=== PATIENT | female | born 1985 | race Caucasian/White ===

== ENCOUNTER 2018-09-01 17:29 | Observation (INO) | payer BC, MEDICAID | END 2018-09-01 19:55 | disposition home or self-care (01) | LOC: SPU 17:29 | PROVIDERS: ADMIT Specialist; ATTEND Specialist | DX: O62.9 Abnormality of forces of labor, unspecified (principal); Z3A.39 39 weeks gestation of pregnancy | CPT/HCPCS: G0378 ==

== ENCOUNTER 2018-09-03 07:50 | Inpatient (IN) | payer BC, MEDICAID ==
[~2018-09-03] VITALS: Ht 172.7 cm; Wt 107.0 kg
[2018-09-03] MEDS ORDERED: OXYTOCIN/0.9 % SODIUM CHLORIDE 1,000 ML IV SCH (08:29)
[2018-09-03] MEDS ORDERED: LR 1,000 ML IV SCH (08:29)
[2018-09-03] MEDS ORDERED: TERBUTALINE SULFATE 1 MG/ML VIAL SUBCUT ONE (08:30)
[2018-09-03] MEDS ORDERED: NALBUPHINE HCL 10 MG/ML AMP IVP PRN (08:30)
[2018-09-03 09:20] LABS: HEMATOCRIT 35.1 % (36-48); HEMOGLOBIN 11.6 g/dL (12.0-16.0); RED BLOOD CELL COUNT(AUTO) 4.21 MIL/uL (4.2-6.2)
[2018-09-03 09:21] LABS: BASOPHILS % (AUTO) 0.3 % (0.0-2.0); EOSINOPHILS % (AUTO) 0.6 % (0.0-4.0); LYMPHOCYTES # (AUTO) 1.3 K/uL (1.0-5.5); MEAN CORPUSCULAR HEMOGLOBIN 27 pg (27-31); MEAN CORPUSCULAR HGB CONC 33 % (32-36); MEAN CORPUSCULAR VOLUME 83 fL (79.0-98.0); MONOCYTES # (AUTO) 0.3 K/uL (0.0-1.0); MONOCYTES % (AUTO) 4.9 % (1.7-9.3); NEUTROPHILS # (AUTO) 5.4 K/uL (1.8-7.7); NEUTROPHILS % (AUTO) 76.2 % (40.0-70.0); PLATELET COUNT (AUTO) 194 K/uL (130-430); RED CELL DISTRIBUTION WIDTH 13.5 % (9.0-15.0)
[2018-09-03 11:33] LABS: BILIRUBIN,URINE NEGATIVE (NEGATIVE); BLOOD, URINE NEGATIVE (NEGATIVE); CLARITY/URINE CLEAR (CLEAR); COLOR,URINE YELLOW (YELLOW); GLUCOSE,URINE NEGATIVE (NEGATIVE); KETONES,URINE 1+ (NEGATIVE); LEUKOCYTE ESTERASE ,URINE 2+ (NEGATIVE); NITRITE, URINE NEGATIVE (NEGATIVE); PH,URINE 5.5 (5.0-8.0); PROTEIN URINE NEGATIVE (NEGATIVE); UROBILINOGEN,URINE 0.2 (0.2-1.0)
[2018-09-03 11:33] LABS: BARBITURATE, URINE NEGATIVE (NEG <=200); BENZODIAZEPINE, URINE NEGATIVE (NEG <=150); CANNABINOID, URINE NEGATIVE (NEG <=50); COCAINE, URINE NEGATIVE (NEG <=150); METHAMPHETAMINES SCREEN,URINE NEGATIVE (NEG <=500); OPIATE, URINE NEGATIVE (NEG <=100); PHENCYCLIDINE SCREEN,URINE NEGATIVE (NEG <=25); UR TRICYCLIC ANTIDEPRESSANTS NEGATIVE (NEG <=300); URINE AMPHETAMINE NEGATIVE (NEG <=500); URINE METHADONE NEGATIVE (NEG <=200); URINE OXYCODONE SCREEN NEGATIVE (NEG <=100); URINE PROPOXYPHENE SCREEN NEGATIVE (NEG <=300)
[2018-09-03 11:54] LABS: RBC,URINE 0-3 /HPF (0-3)
[2018-09-03 11:55] LABS: BACTERIA,URINE FEW /HPF (None Seen)
== END 2018-09-03 14:10 | disposition home or self-care (01) | DRG 833 ==
LOC: SPU 07:50
PROVIDERS: ADMIT Specialist; ATTEND Specialist
PROC: 3E033VJ Introduction of Other Hormone into Peripheral Vein, Percutaneous Approach (ICD-10-PCS; principal; 2018-09-03)
DX: O26.893 Other specified pregnancy related conditions, third trimester (principal); O09.813 Supervision of pregnancy resulting from assisted reproductive technology, third trimester; Z3A.39 39 weeks gestation of pregnancy
CPT/HCPCS: 36415; 80307; 81000-TC; 85025; 86592; 86886; 86900; 86901; 87086; J2590; J7120

== ENCOUNTER 2018-09-14 17:16 | Observation (INO) | payer MEDICAID, BC | END 2018-09-14 19:12 | disposition home or self-care (01) | LOC: SPU 17:16 | PROVIDERS: ADMIT Specialist; ATTEND Specialist | DX: O62.9 Abnormality of forces of labor, unspecified (principal); Z3A.00 Weeks of gestation of pregnancy not specified | CPT/HCPCS: 81002; G0378 ==

== ENCOUNTER 2018-09-28 19:20 | Inpatient (IN) | payer BC, MEDICAID ==
[~2018-09-28] VITALS: Ht 172.7 cm; Wt 108.9 kg
[2018-09-28] MEDS ORDERED: OXYTOCIN/0.9 % SODIUM CHLORIDE 1,000 ML IV SCH (23:38)
[2018-09-28] MEDS ORDERED: DINOPROSTONE 10 MG SUPP VG ONE (23:45)
[2018-09-28] MEDS ORDERED: TERBUTALINE SULFATE 1 MG/ML VIAL SUBCUT ONE (23:45)
[2018-09-28] MEDS ORDERED: NALBUPHINE HCL 10 MG/ML AMP IVP PRN (23:45)
[2018-09-29] MEDS ORDERED: AMPICILLIN SODIUM 2 GM in NS 100 ML IV ONE ×2
[2018-09-29 00:10] VITALS: BP_SYST 124
[2018-09-29] MEDS: LR 1,000 ML IV SCH ×2 (00:22→09:30)
[2018-09-29] MEDS ORDERED: AMPICILLIN SODIUM 2 GM VIAL ONE (00:25)
[2018-09-29 00:30] LABS: WHITE BLOOD COUNT (AUTO) 10.1 K/uL (4.8-10.8)
[2018-09-29 00:31] LABS: HEMATOCRIT 36.7 % (36-48); MEAN CORPUSCULAR HEMOGLOBIN 27 pg (27-31); MEAN CORPUSCULAR HGB CONC 33 % (32-36); MEAN CORPUSCULAR VOLUME 84 fL (79.0-98.0); PLATELET COUNT (AUTO) 193 K/uL (130-430); RED BLOOD CELL COUNT(AUTO) 4.39 MIL/uL (4.2-6.2); RED CELL DISTRIBUTION WIDTH 13.9 % (9.0-15.0)
[2018-09-29 00:32] LABS: BASOPHILS % (AUTO) 0.5 % (0.0-2.0); EOSINOPHILS # (AUTO) 0.1 K/uL (0.0-0.4); EOSINOPHILS % (AUTO) 0.6 % (0.0-4.0); LYMPHOCYTES # (AUTO) 2.1 K/uL (1.0-5.5); LYMPHOCYTES % (AUTO) 20.8 % (20.5-51.5); MONOCYTES # (AUTO) 0.5 K/uL (0.0-1.0); NEUTROPHILS # (AUTO) 7.4 K/uL (1.8-7.7); NEUTROPHILS % (AUTO) 73.1 % (40.0-70.0)
[2018-09-29] MEDS ORDERED: AMPICILLIN SODIUM 1 GM in NS 50 ML IV SCH (04:00)
[2018-09-29] MEDS: ONDANSETRON HCL 4 MG/2 ML VIAL IVP PRN ×3 (04:20→20:45)
[2018-09-29] MEDS ORDERED: ONDANSETRON HCL 4 MG/2 ML VIAL ONE (04:30)
[2018-09-29] MEDS ORDERED: AMPICILLIN SODIUM 1 GM VIAL ONE (06:01)
[2018-09-29] MEDS ORDERED: ROPIVACAINE 0.2% 100 ML ONE ×2 (12:30→19:46)
[2018-09-29] MEDS ORDERED: fentaNYL CITRATE/PF 100 MCG/2 ML AMP ONE (12:30)
[2018-09-29] MEDS ORDERED: TEMAZEPAM 15 MG CAPSULE PO PRN (21:00)
[2018-09-29] MEDS ORDERED: SENNOSIDES/DOCUSATE SODIUM 1 TAB TABLET(SENOKOT-S) PO PRN (22:00)
[2018-09-29] MEDS ORDERED: DOCUSATE SODIUM 100 MG CAPSULE PO PRN (22:00)
[2018-09-29] MEDS ORDERED: HYDROcodone/ACETAMIN 5-325 MG TAB (NORCO/ VICODIN) PO PRN (22:00)
[2018-09-29] MEDS ORDERED: ANUSOL 1 EA SUPP.RECT (PREPARATION H) RC PRN (22:00)
[2018-09-29] MEDS ORDERED: WITCH HAZEL LEAF 1 MED.PAD MED.PAD TP PRN (22:00)
[2018-09-29] MEDS ORDERED: OXYTOCIN/0.9 % SODIUM CHLORIDE 1,000 ML IV SCH (22:00)
[2018-09-29] MEDS ORDERED: METHYLERGONOVINE MALEATE 0.2 MG TABLET PO PRN (22:00)
[2018-09-29] MEDS ORDERED: DERMOPLAST SPRAY TP PRN (22:00)
[2018-09-29] MEDS ORDERED: LANOLIN 7 GM OINT. TP PRN (22:00)
[2018-09-29] MEDS ORDERED: RHO(D) IMMUNE GLOBULIN/MALTOSE 1500 UNITS/1.3 ML (WINHRO) IM PRN (22:00)
[2018-09-29] MEDS ORDERED: DIPH-TET-PERTUS Vaccine 0.5 ML VIAL (ADACEL) I.M. PRN (22:00)
[2018-09-29] MEDS ORDERED: OXYCODONE/ACETAMINOPHEN 5-325 TABLET PO PRN (22:00)
[2018-09-29] MEDS ORDERED: MEASLES,MUMPS&RUBELLA VACC/PF 12500 UNIT/0.5 ML VIAL SUBQ PRN (22:00)
[2018-09-29] MEDS ORDERED: HYDROCORTISONE 0.5%, 28.35 GM TOPICAL CREAM TP PRN (22:00)
[2018-09-29] MEDS ORDERED: OXYTOCIN/0.9 % SODIUM CHLORIDE 1,000 ML IV ONE (22:15)
[2018-09-30] MEDS ORDERED: IBUPROFEN 600 MG TABLET PO SCH
[2018-09-30] MEDS: OXYCODONE/ACETAMINOPHEN 5-325 TABLET PO PRN ×4 (00:31→11:10)
[2018-09-30 08:54] LABS: HEMOGLOBIN 10.3 g/dL (12.0-16.0); MEAN CORPUSCULAR HEMOGLOBIN 29 pg (27-31); MEAN CORPUSCULAR HGB CONC 34 % (32-36); MEAN CORPUSCULAR VOLUME 85 fL (79.0-98.0); PLATELET COUNT (AUTO) 175 K/uL (130-430); RED BLOOD CELL COUNT(AUTO) 3.52 MIL/uL (4.2-6.2); RED CELL DISTRIBUTION WIDTH 14.1 % (9.0-15.0); WHITE BLOOD COUNT (AUTO) 10.4 K/uL (4.8-10.8)
[2018-09-30 08:55] LABS: BASOPHILS # (AUTO) 0.1 K/uL (0.0-0.2); BASOPHILS % (AUTO) 0.5 % (0.0-2.0); EOSINOPHILS % (AUTO) 0.5 % (0.0-4.0); LYMPHOCYTES # (AUTO) 1.8 K/uL (1.0-5.5); LYMPHOCYTES % (AUTO) 17.5 % (20.5-51.5); MONOCYTES # (AUTO) 0.5 K/uL (0.0-1.0); NEUTROPHILS % (AUTO) 76.5 % (40.0-70.0)
== END 2018-09-30 11:43 | disposition home or self-care (01) | DRG 807 ==
LOC: SPU 22:40
PROVIDERS: ADMIT Specialist; ATTEND Specialist
PROC: 10E0XZZ Delivery of Products of Conception, External Approach (ICD-10-PCS; principal; 2018-09-30)
PROC: 0HQ9XZZ Repair Perineum Skin, External Approach (ICD-10-PCS; 2018-09-30)
PROC: 3E0R3BZ Introduction of Anesthetic Agent into Spinal Canal, Percutaneous Approach (ICD-10-PCS; 2018-09-30)
PROC: 00HU33Z Insertion of Infusion Device into Spinal Canal, Percutaneous Approach (ICD-10-PCS; 2018-09-30)
DX: O70.9 Perineal laceration during delivery, unspecified (principal); Z37.0 Single live birth; Z3A.39 39 weeks gestation of pregnancy; O99.344 Other mental disorders complicating childbirth; F41.9 Anxiety disorder, unspecified
CPT/HCPCS: 36415; 81002-TC; 85025; 86592; 86886; 86900; 86901; J0290; J2300; J2405; J2590; J2795; J3010; J7120

== ENCOUNTER 2019-07-19 21:13 | Emergency (ER) | payer BC, MEDICAID ==
[~2019-07-19] VITALS: Ht 172.7 cm; Wt 103.9 kg
[2019-07-19 21:21] VITALS: BP_SYST 141
--- NOTE | 2019-07-19 21:27 | NUR ---
Pt placed to ER waiting room in stable condition. Dr. Lazaro made aware.
--- NOTE | 2019-07-19 21:40 | NUR ---
Urine specimen collected and sent to lab.
[2019-07-19 21:53] LABS: BILIRUBIN,URINE NEGATIVE (NEGATIVE); CLARITY/URINE CLEAR (CLEAR); COLOR,URINE YELLOW (YELLOW); GLUCOSE,URINE NEGATIVE (NEGATIVE); KETONES,URINE NEGATIVE (NEGATIVE); LEUKOCYTE ESTERASE ,URINE NEGATIVE (NEGATIVE); NITRITE, URINE NEGATIVE (NEGATIVE); PROTEIN URINE NEGATIVE (NEGATIVE); UROBILINOGEN,URINE 0.2 (0.2-1.0)
[2019-07-19 22:18] LABS: BLOOD, URINE TRACE (NEGATIVE)
[2019-07-19 22:19] LABS: BACTERIA,URINE FEW /HPF (None Seen); WBC,URINE 0-3 /HPF (0-3)
[2019-07-19 22:34] LABS: CREATININE 0.98 mg/dL (0.55-1.30); POTASSIUM 3.9 mmol/L (3.5-5.1)
[2019-07-19 23:02] LABS: ALBUMIN 3.7 g/dL (3.4-4.8); TOTAL BILIRUBIN 0.1 mg/dL (0.0-1.0)
--- NOTE | 2019-07-20 00:23 | NUR ---
Pt ambulatory to bed 8 for evaluation
--- NOTE | 2019-07-20 00:25 | NUR ---
Pt C/O vaginal discharge and abdominal cramping x 1 hour prior to pt's arrival. Pt is 5 weeks preganant and is confirmed by ultrasound. Denies any N/V, lethargy, or any other symptoms at this time. Will continue to monitor.
--- NOTE | 2019-07-20 01:02 | NUR ---
ER Dr. Lazaro at bedside examining patient.
[2019-07-20 01:18] VITALS: BP_SYST 136
--- NOTE | 2019-07-20 01:20 | NUR ---
Patient given written and verbal discharge instructions and verbalizes understanding. ER MD discussed with patient the results and treatment provided. Patient in stable condition. ID arm band removed. Patient educated on pain management and to follow up with PMD. Pain Scale 0. Opportunity for questions provided and answered. Medication side effect fact sheet provided.
== END 2019-07-20 01:12 | disposition home or self-care (01) ==
LOC: SED 21:13
DX: O20.9 Hemorrhage in early pregnancy, unspecified (principal); Z3A.01 Less than 8 weeks gestation of pregnancy
CPT/HCPCS: 36415; 76801; 76817; 80053; 81000-TC; 81025; 84702-TC; 99284